=== PATIENT | male | born 1990 | race Caucasian/White ===

== ENCOUNTER 2021-10-24 09:42 | Emergency (ER) | payer BC ==
[2021-10-24] MEDS ORDERED: ONDANSETRON ODT 4 MG TABLET TL STA (09:55)
[2021-10-24 10:16] LABS: BASOPHILS % (AUTO) 0.1 %; HCT - HEMATOCRIT 45.2 % (42.0-52.0); HGB - HEMOGLOBIN 15.1 g/dL (14.0-18.0); LYMPHOCYTES # (AUTO) 0.6 10^3/uL (1.5-3.5); LYMPHOCYTES % (AUTO) 4.5 %; MEAN CORPUSCULAR HEMOGLOBIN 26.8 pg (27.0-31.0); MEAN CORPUSCULAR HGB CONC 33.4 g/dL (32.0-36.0); MEAN CORPUSCULAR VOLUME 80.3 fL (80.0-94.0); MONOCYTES # (AUTO) 0.5 10^3/uL (0.0-1.0); MONOCYTES % (AUTO) 3.8 %; NEUTROPHILS # (AUTO) 12.7 10^3/uL (1.5-6.6); NEUTROPHILS % (AUTO) 91.2 %; PLT - PLATELET COUNT 186 10^3/uL (130-450); RED BLOOD COUNT 5.63 10^6/uL (4.70-6.10); RED CELL DISTRIBUTION WIDTH 13.2 % (12.0-15.0); WHITE BLOOD COUNT 13.9 x10^3/uL (4.8-10.8)
[2021-10-24 10:26] LABS: ALBUMIN 4.5 g/dL (3.2-5.5); ALBUMIN/GLOBULIN RATIO 1.4 (1.0-2.2); BILIRUBIN,TOTAL 0.4 mg/dL (0.2-1.0); CALCIUM 9.2 mg/dL (8.5-10.3); CREATININE 1.3 mg/dL (0.6-1.2); POTASSIUM 4.2 mmol/L (3.5-5.0); TOTAL PROTEIN 7.7 g/dL (6.7-8.2)
[2021-10-24 10:50] LABS: BILIRUBIN,URINE NEGATIVE (NEGATIVE); GLUCOSE, URINE (UA) NEGATIVE (NEGATIVE); KETONES,URINE (UA) TRACE mg/dL (NEGATIVE); LEUKOCYTE ESTERASE, URINE NEGATIVE (NEGATIVE); NITRITE,URINE NEGATIVE (NEGATIVE); OCCULT BLOOD,URINE MODERATE (NEGATIVE); PH,URINE 5.5 PH (5.0-7.5); PROTEIN,URINE TRACE mg/dL (NEGATIVE); UROBILINOGEN,URINE 0.2 (NORMAL) E.U./dL (NORMAL)
[2021-10-24 10:52] LABS: CLARITY,URINE CLEAR (CLEAR)
[2021-10-24 10:56] LABS: BACTERIA,URINE Rare /HPF (None Seen); CRYSTALS,URINE 3-5 Calcium Oxalate /LPF; MUCUS,URINE Few Strands; SQUAMOUS EPITHELIAL CELL,UR NONE SEEN (<= Few); WBC,URINE 0-3 /HPF (0-3)
[2021-10-24] MEDS ORDERED: KETOROLAC 30 MG/ML VIAL IVP STA (11:43)
[2021-10-24] MEDS ORDERED: SODIUM CHLORIDE 0.9% 1,000 ML IV STA (11:43)
--- NOTE | 2021-10-24 11:46 | ED Physician Documentation ---
History of Present Illness - Stated complaint Stated Complaint: BACK/ABD PX/VOMITING - Chief complaint Chief Complaint: Abd Pain - Additonal information Additional information: 31-year-old male presents emergency department for evaluation of acute right lower back and flank pain. Pain woke him from sleep this morning. He has vomited once. Denies hematuria or dysuria. No history of similar. 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 No recent falls or trauma. No history of similar. Patient reports taking 3 Tylenol at home and a tramadol prior to arrival without relief of symptoms. Review of Systems Constitutional: denies: Fever, Chills Throat: reports: Reviewed and negative Cardiac: reports: Reviewed and negative Respiratory: reports: Reviewed and negative GI: reports: Abdominal Pain, Vomiting : reports: Reviewed and negative Skin: reports: Reviewed and negative Musculoskeletal: reports: Reviewed and negative PD PAST MEDICAL HISTORY - Past Medical History Past Medical History: No - Past Surgical History Past Surgical History: No - Present Medications Home Medications: Ambulatory Orders Medication Instructions Recorded Confirmed Finasteride [Propecia] 1 mg PO DAILY 10/24/21 10/24/21 - Allergies Allergies/Adverse Reactions: Allergies Allergy/AdvReac Type Severity Reaction Status Date / Time No Known Drug Allergies Allergy Verified 10/24/21 09:54 - Social History Does the pt smoke?: No Smoking Status: Never smoker Does the pt drink ETOH?: No Does the pt have substance abuse?: No - Immunizations Immunizations are current?: Yes - POLST Patient has POLST: No PD ED PE NORMAL - General General: Alert and oriented X 3, No acute distress - HEENT HEENT: Atraumatic - Neck Neck: Supple, no meningeal sign, No adenopathy - Cardiac Cardiac: RRR, No murmur - Respiratory Respiratory: No respiratory distress, Clear bilaterally - Abdomen Abdomen: Normal bowel sounds, Soft. No: Non tender (Very mild tenderness elicited with deep palpation of the right lower back only. No significant tenderness elicited of the anterior abdomen or flank. 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 Eye Opening: Spontaneous Motor: Obeys Commands Verbal: Oriented GCS Score: 15 Results - Vitals Vitals: Vital Signs - 24 hr 10/24/21 10/24/21 09:50 11:54 Temperature 36.2 C L Heart Rate 78 74 Respiratory 16 16 Rate Blood Pressure 157/92 H 161/90 H O2 Saturation 98 100 Oxygen O2 Source Room air - Labs Labs: Laboratory Tests 10/24/21 10/24/21 10/24/21 10:05 10:09 10:09 WBC 13.9 H RBC 5.63 Hgb 15.1 Hct 45.2 MCV 80.3 MCH 26.8 L MCHC 33.4 RDW 13.2 Plt Count 186 MPV 11.0 Neut # (Auto) 12.7 H Lymph # (Auto) 0.6 L Leon # (Auto) 0.5 Eos # (Auto) 0.0 Baso # (Auto) 0.0 Absolute Nucleated RBC 0.00 Nucleated RBC % 0.0 Sodium 139 Potassium 4.2 Chloride 107 Carbon Dioxide 21 Anion Gap 11.0 BUN 22 H Creatinine 1.3 H Estimated GFR (MDRD) 64 L Glucose 150 H Calcium 9.2 Total Bilirubin 0.4 AST 28 ALT 31 Alkaline Phosphatase 46 Total Protein 7.7 Albumin 4.5 Globulin 3.2 Albumin/Globulin Ratio 1.4 Lipase 28 Urine Color YELLOW Urine Clarity CLEAR Urine pH 5.5 Ur Specific [place] >=1.030 H Urine Protein TRACE Urine Glucose (UA) NEGATIVE Urine Ketones TRACE Urine Occult Blood MODERATE H Urine Nitrite NEGATIVE Urine Bilirubin NEGATIVE Urine Urobilinogen 0.2 (NORMAL) Ur Leukocyte Esterase NEGATIVE Urine RBC 6-10 H Urine WBC 0-3 Ur Squamous Epith Cells NONE SEEN Urine Crystals 3-5 Calcium Oxalate Urine Bacteria Rare Urine Mucus Few Strands Ur Microscopic Review INDICATED Urine Culture Comments NOT INDICATED - Rads (name of study) CT abd Radiology: Final report received (Punctate calcification within the bladder suggestive of recently passed right renal stone given slight appearance of renal collecting system prominence.) PD MEDICAL DECISION MAKING - ED course Complexity details: reviewed results, re-evaluated patient, considered differential, d/w patient ED course: 31-year-old male presents emergency department for evaluation of acute right lower lower back pain that woke him up from sleep this morning. Unresolved with Tylenol and tramadol. He did have some vomiting. No pertinent past surgical history. Here in the emergency department we do see some mild hematuria without findings of infection. No leukocytosis. He does have a mildly elevated BUN and creatinine likely indicating some dehydration. He was given a liter of cry stalloid here in the ER. Subsequent CT imaging did show a punctate calcification within the bladder suggesting that he had recently passed a right renal stone given the appearance of the renal collecting system. Patient was administered Toradol here in the emergency department with near full resolution of symptoms. He is no longer vomiting after Zofran. Discussed with the patient that I suspect the symptoms were due to passing of a kidney stone. Advise follow-up with primary care provider and may benefit from referral to a urologist. Recommended 600 mg of Motrin with food 2-3 times a day for any further colic. Emergent worrisome return precautions were discussed. Departure - Departure Disposition: Home, Self Care Clinical Impression: Bladder calculi, Elevated serum creatinine Hematuria Qualifiers: Hematuria type: other microscopic Qualified Code(s): R31.29 - Other microscopic hematuria; R31.2 - Other microscopic hematuria Condition: Stable Record reviewed to determine appropriate education?: Yes Instructions: ED Stone Renal Passed Comments: Dontae you are seen today in the emergency department because you developed pain in the lower portion of your back. Here in the ER we do see that there is some blood in your urine. You also have a very mildly elevated BUN and creatinine. I suspect this is some mild dehydration from your hike yesterday. You were given a liter of IV fluids here in the ER. The CT imaging shows that you do have a small tiny stone in your bladder that was likely passed from the right kidney. The symptoms that you experienced are consistent with renal or kidney colic. You were given Toradol here in the emergency department which is an injectable form of an NSAID medication. It has improved your pain markedly. I do recommend that you take 600 mg of Motrin at home with food 2-3 times a day for any further renal colic. I also recommend very close follow-up with your primary care provider. You may benefit from longer-term evaluation and referral with a urologist. Reasons to return to the emergency department would include suddenly severe low back pain, fevers, uncontrolled vomiting or if you experience similar symptoms that do not resolve with ibuprofen.
--- NOTE | 2021-10-24 12:48 | CT Report ---
PROCEDURE: Abdomen/Pelvis WO INDICATIONS: back pain, hematuria TECHNIQUE: Noncontrast 5 mm thick sections acquired from the diaphragms to the symphysis. 5 mm coronal and sagi ttal reformats were then performed. For radiation dose reduction, the following was used: automated exposure control, adjustment of mA and/or kV according to patient size. COMPARISON: None. FINDINGS: Image quality: Excellent. ABDOMEN: Lung bases: Lung bases are clear. Heart size is normal. Solid organs: Liver and spleen are normal in size. Gallbladder is unremarkable. Pancreas is normal in contours. No adrenal nodules. Kidneys are normal in size, without hydronephrosis or nephrolithi asis. Peritoneum and bowel: Unenhanced bowel loops demonstrate normal wall thickness and caliber. No free fluid or air. Nodes and vessels: No retroperitoneal or mesenteric adenopathy by size criteria. Aorta and inferior vena cava are normal in caliber. Miscellaneous: No ventral hernias. PELVIS: Genitourinary: Bladder wall thickness is normal. Calcification is noted within the dependent bladde r, punctate in size. There is a very slight appearance of right renal collecting system prominence. Miscellaneous: No inguinal hernias or adenopathy. Bones: No suspicious bony lesions. No vertebral body compression fractures. IMPRESSION: Punctate calcification within the bladder suggestive of recently passed right renal stone given sligh t appearance of renal collecting system prominence. Reviewed by: Diana Pepe MD on 10/24/2021 12:47 PM PDT Approved by: Diana Pepe MD on 10/24/2021 12:47 PM PDT Station ID: [id number]
[2021-10-24 13:10] VITALS: BP 148/91
== END 2021-10-24 13:10 | disposition home or self-care (01) ==
LOC: EDBD → ED 09:42
DX: N21.0 Calculus in bladder (principal); R31.29 Other microscopic hematuria; R79.89 Other specified abnormal findings of blood chemistry
CPT/HCPCS: 36415; 74176; 80053; 81001; 83690; 85025; 96361; 96374; 99284; Q0162; 81003; 87086